=== PATIENT | female | born 1960 | race Caucasian/White ===

== ENCOUNTER 2024-09-08 19:31 | Emergency (ER) | payer MEDICAID ==
[~2024-09-08] VITALS: Ht 157.5 cm; Wt 86.4 kg
[~2024-09-08 19:31] MED LIST: CLIN150C2 PO; CLON-527 PO; COL100C PO; DULO-31 PO; HYDR25TA4 PO; TRAM50TA2 PO
[2024-09-08 19:39] VITALS: TEMP 98.6
[2024-09-08] MEDS ORDERED: Cipro HC otic suspension 10ML bottle RIGHT EAR ONE (21:45)
--- NOTE | 2024-09-08 21:47 | Physician Documentation ---
History of Present Illness ~ General Chief Complaint: Multiple Medical Complaints Stated Complaint: FALL Time Seen by MD: 20:49 Primary Medical Doctor: petra History of Present Illness Initial Comments This 64-year-old female presents with four days of productive cough, chest congestion, nasal congestion, and sore throat along with left ear pain. Patient additionally reports concern for a poorly healing wound she has had on her right pimentel since May. Patient reports no recent fevers. Medication Reconciliation Allergies: Coded Allergies: morphine (Unverified Allergy, Unknown, 09/08/24) ondansetron HCl (Verified Adverse Reaction, Unknown, INTERACTS WITH HOME CYMBALTA, 09/08/24) STATES IT MAKES HER MORE AGITATED SOMETIMES Scheduled Amox Tr/Potassium Clavulanate (Augmentin 875-125 Tablet), 1 TAB PO Q12H Azithromycin (Azithromycin), 1 TAB PO UD Ciprofloxacin Hcl/Hc Otic Susp* (Cipro Hc Otic Susp*), 3 DROP LEFT EAR Q12H Clindamycin (Cleocin ), 450 MG PO Q6H Clonazepam* (Klonopin*), 1 MG PO BID, (Reported) Docusate Sodium* (Colace*), 100 MG PO HS, (Reported) Duloxetine Hcl* (Cymbalta*), 60 MG PO DAILY, (Reported) Hydrochlorothiazide (Hydrochlorothiazide), 1 TABLET PO DAILY Tramadol Hcl (Tramadol Hcl), 50-100 MG PO Q6H PRN FOR PAIN Scheduled PRN albuterol inhaler (Pro-Air Inhaler), 1-2 PUFFS PO Q4H PRN for shortness of breath Past Medical History Past Medical History: Peripheral Neuropathy, Hypertension, Chronic Pain, Anxiety, Depression Past Surgical History: appendectomy, hysterectomy, other Alcohol Use: None Drug Use: none Lives with: Family Lives In: Home Occupation: unemployed Review of Systems ROS Cough, leg wound, ear pain as stated above in the HPI, otherwise all systems are reviewed and negative. Physical Exam Physical Exam Vital Signs: Temperature: 98.6, Source: Oral, Heart Rate: 98, Respiratory Rate: 20, BP: 100/77, Pulse Oximetry: 94, Weight: 86.360 Physical Exam VITALS: Reviewed and as above. GENERAL: Alert, nontoxic appearing, no apparent distress. HEENT: Uvula midline, throat mildly erythematous, tonsils not swollen, bilatera l TMs nonbulging, clear, normal exam, left auditory canal mildly erythematous RESPIRATORY: No increased work of breathing, no respiratory distress, speaking in full clear sentences, clear lung sounds all romero CV: Regular rate and rhythm no murmur SKIN: 1.5 cm x 1.5 cm shallow chronic appearing wound to skin of left anterior pimentel with minimal surrounding erythema and without induration, fluctuance, or discharge Progress Results/Orders Results/Orders Orders - ROWDY KULKARNI Chest,Two Views (09/08/24 21:59) Incentive Spirometer Teaching (09/08/24 22:41) General Nursing Order (09/08/24 22:41) Completed Orders - ROWDY KULKARNI Ciprofloxacin/Hct Otic Susp (Cipro Hc Ot (09/08/24 21:45) Chest,Two Views (09/08/24 21:59) Ciprofloxacin/Hct Otic Susp (Cipro Hc Ot (09/09/24 08:00) Ciprofloxacin/Hct Otic Susp (Cipro Hc Ot (09/08/24 21:50) Amox Tr/Potassium Clavulanate (Augmentin (09/08/24 22:45) Medications Received in ER Medications (Trade) Dose Ordered Sig/Hever Route PRN Reason Start Time Stop Time Status Last Admin Dose Admin (Cipro HC otic suspension) 3 drp ONCE ONCE LEFT EAR 09/08/24 21:50 09/08/24 21:51 DC 09/08/24 22:07 3 DRP (Augmentin 875-125mg tablet) 1 tab ONCE ONCE PO 09/08/24 22:45 09/08/24 22:46 DC 09/08/24 23:26 1 TAB Vital Signs 09/08/24 09/08/24 19:39 23:27 Temp 98.6 Pulse 98 78 Resp 20 16 B/P (MAP) 100/77 123/82 (96) Pulse Ox 94 95 EKG/XRAY/CT/US/VASC/MRI Chest X-Ray : Additional Comments CHEST RADIOGRAPH Indication: Cough Technique: Frontal and lateral view of the chest was obtained Comparison: None FINDINGS: Lines and Tubes: None Lungs: Lung volumes are low. Mild bibasilar subsegmental atelectasis/consolidation. No pulmonary edema. Pleura: No effusion. No pneumothorax. Cardiomediastinal contours: Unremarkable IMPRESSION: Low lung volumes. Mild bibasilar subsegmental atelectasis/consolidation. Electronically Signed by:LEONARDO JENKINS MD Date & Time: 09/08/242218 Dictated by: LEONARDO JENKINS MD Dictation date and time: 09/08/242218 I have reviewed and agree with the radiology report. I have reviewed and interpreted the imaging as: Slight consolidations bilaterally in base of lungs, no pneumothorax Medical Decision Making Findings This 64-year-old female presented with multiple medical concerns including four days of productive cough, chest congestion, nasal congestion, sore throat, and left ear pain along with concern for a chronic appearing poorly healing wound to her right pimentel this is an since May of this year. While patient's physical exam is relatively benign with clear lung sounds bilaterally chest x-ray did show some questionable bilateral consolidation representing either atelectasis or early pneumonia, given patient's risk factors as a smoked her I will treat for pneumonia with course of antibiotics outpatient, patient is hemodynamically stable and appropriate for outpatient management. Physical exam of patient's left ear did demonstrate evidence of otitis externa without evidence of otitis media. Patient's wound to right pimentel does appear chronic and poor healing without significant evidence to suggest infection to this wound though patient will be referred to outpatient wound care for further management. Patient provided home care instructions, follow up instructions, and return to care precautions which she verbalized understanding of. Differential Diagnosis URI, abscess, cellulitis, sepsis otitis media, meningitis, airway compromise, respiratory distress, hypoxia Departure Time of Disposition: 22:44 Disposition: 01 HOME / SELF CARE / HOMELESS Impression: Primary Impression: Community acquired pneumonia Qualified Codes: J18.9 - Pneumonia, unspecified organism Additional Impressions: Otitis externa Qualified Codes: H60.502 - Unspecified acute noninfective otitis externa, left ear Chronic wound of extremity Condition: Improved Discharge Instructions: Community-Acquired Pneumonia, Adult, [id number], Otitis Externa, [id number] Additional Instructions: Keep the wound on your leg clean, clean, dry, and covered. Follow up with outpatient wound care. Please take all antibiotics as prescribed. Use the provided incentive spirometer hourly while awake. Please follow up with your primary care provider in the next few days. Please return to the emergency department for any new or worsening concerning symptoms. Referrals: NO PRIMARY CARE PROVIDER (PCP) [facility], [facility] Prescriptions albuterol inhaler (Pro-Air Inhaler) 8.5 Gm Inhaler 1-2 PUFFS PO Q4H PRN for shortness of breath, #1 INH Prov: ROWDY KULKARNI 09/08/24 Ciprofloxacin Hcl/Hc Otic Susp* (Cipro Hc Otic Susp*) 10 Ml Bottle 3 DROP LEFT EAR Q12H for 7 Days, #10 ML Prov: ROWDY KULKARNI 09/08/24 Azithromycin (Azithromycin) 250 Mg Tablet 1 TAB PO UD for 5 Days, #6 TAB 2 the first day followed by 1 for days 2-5 Prov: ROWDY KULKARNI 09/08/24 Amox Tr/Potassium Clavulanate (Augmentin 875-125 Tablet) 1 Each Tablet 1 TAB PO Q12H for 5 Days, #10 TAB Prov: ROWDY KULKARNI 09/08/24 Education Educated: Patient Educated regarding: diagnosis, treatment, prognosis, need for follow up Signature Scribe Signature: No scribe Attestation: The note accurately reflects work and decisions made by me.REGINA Gaitan 09/09/24 03:28 ROWDY KULKARNI September 08, 2024 21:47
[2024-09-08] MEDS: Cipro HC otic suspension 10ML bottle LEFT EAR ONE (22:07)
--- NOTE | 2024-09-08 22:22 | RADIOLOGY REPORT ---
CHEST RADIOGRAPH Indication: Cough Technique: Frontal and lateral view of the chest was obtained Comparison: None FINDINGS: Lines and Tubes: None Lungs: Lung volumes are low. Mild bibasilar subsegmental atelectasis/consolidation. No pulmonary anamaria a. Pleura: No effusion. No pneumothorax. Cardiomediastinal contours: Unremarkable IMPRESSION: Low lung volumes. Mild bibasilar subsegmental atelectasis/consolidation.
[2024-09-08] MEDS ORDERED: AZIT250T83 PO (22:48)
[2024-09-08] MEDS ORDERED: AMOX-117 PO (22:48)
[2024-09-08] MEDS ORDERED: CIPR10DR LEFT EAR (22:49)
[2024-09-08] MEDS ORDERED: ALBU8HFA PO (23:16)
[2024-09-08] MEDS: amox tr/potassium clavulanate 875/125mg TAB PO ONE (23:26)
[2024-09-08 23:27] VITALS: BP 123/82; PULSE 78; RESP 16; O2SAT 95
[2024-09-09] MEDS ORDERED: Cipro HC otic suspension 10ML bottle LEFT EAR SCH (08:00)
== END 2024-09-08 23:36 | disposition home or self-care (01) ==
LOC: ER 19:32
DX: J18.9 Pneumonia, unspecified organism (principal); H60.92 Unspecified otitis externa, left ear; F41.9 Anxiety disorder, unspecified; F32.A Depression, unspecified; I10 Essential (primary) hypertension; Z88.5 Allergy status to narcotic agent; Z88.8 Allergy status to other drugs, medicaments and biological substances; Z90.49 Acquired absence of other specified parts of digestive tract; Z90.710 Acquired absence of both cervix and uterus
CPT/HCPCS: 71046; 99283